=== PATIENT | female | born 1980 | race African-American/Black ===

== ENCOUNTER 2021-09-21 10:45 | Emergency (ER) | payer OTHER ==
[2021-09-21] MEDS ORDERED: HYDROcodone/Acetaminophen 5/325 mg Tablet ONE (11:15)
[2021-09-21 11:30] LABS: #Basophils 0.1 thou/uL (0.0-0.2); #Eosinphils 0.2 thou/uL (0.0-0.7); #Lymphocytes 1.1 thou/uL (1.20-3.40); #Monocytes 0.3 thou/uL (0.11-0.59); #Neutrophils 1.2 thou/uL (1.40-6.50); %Basophils 1.8 % (0.0-1.0); %Eosinophils 6.6 % (0.0-10.0); %Lymphocytes 38.6 % (21.0-51.0); %Monocytes 11.9 % (0.0-10.0); %Neutrophils 41.1 % (42.0-75.0); Hemoglobin 10.9 g/dL (12.0-16.0); Mean Corpuscular HGB CONC 31.7 g/dL (32.0-36.0); Mean Corpuscular Hemoglobin 31.6 pg (27.0-31.0); Mean Corpuscular Volume 99.7 fL (78.0-98.0); Mean Platelet Volume 7.1 fL (7.4-10.4); Platelet Count 203 thou/uL (130-400); RBC Distribution Width 17.4 % (11.5-14.5); Red Blood Cell (RBC) Count 3.46 mill/uL (4.20-5.40); White Blood Cell (WBC) Count 2.8 thou/uL (4.8-10.8)
[2021-09-21 11:46] LABS: ALT (SGPT) 10 U/L (8-55); AST (SGOT) 82 U/L (5-34); Albumin 2.6 g/dL (3.5-5.0); Alkaline Phosphatase 136 U/L (40-110); Anion Gap 17 mmol/L (10-20); BUN (Urea Nitrogen) Less than 4 mg/dL (7.0-18.7); Calc. Creatinine Clearance 0 mL/min (70-130); Calcium 8.2 mg/dL (7.8-10.44); Carbon Dioxide 25 mmol/L (22-29); Chloride 101 mmol/L (98-107); Globulin 4.5 g/dL (2.4-3.5); Glucose 80 mg/dL (70-105); Potassium 3.4 mmol/L (3.5-5.1); Protein, Total 7.1 g/dL (6.0-8.3); Sodium 140 mmol/L (136-145)
== END 2021-09-21 12:34 | disposition home or self-care (01) ==
LOC: BURERS 10:45
DX: S92.344A Nondisplaced fracture of fourth metatarsal bone, right foot, initial encounter for closed fracture (principal); R60.0 Localized edema; X58.XXXA Exposure to other specified factors, initial encounter; D50.9 Iron deficiency anemia, unspecified
CPT/HCPCS: 36415; 80053; 83880; 85025

== ENCOUNTER 2021-10-10 16:03 | Emergency (ER) | payer OTHER ==
[2021-10-10] MEDS ORDERED: Mag-Al Plus 1200 MG/1200 MG/120 MG/30 ML UDCUP ONE (16:31)
[2021-10-10] MEDS ORDERED: Ondansetron PF 4 MG/2 ML Vial ONE (16:31)
[2021-10-10] MEDS ORDERED: Lidocaine Viscous Sol 2% 15 ml UD Cup ONE (16:31)
[2021-10-10 17:24] LABS: #Basophils 0.1 thou/uL (0.0-0.2); #Lymphocytes 1.5 thou/uL (1.20-3.40); #Monocytes 0.5 thou/uL (0.11-0.59); #Neutrophils 3.5 thou/uL (1.40-6.50); %Basophils 1.8 % (0.0-1.0); %Eosinophils 0.6 % (0.0-10.0); %Lymphocytes 26.1 % (21.0-51.0); %Monocytes 8.7 % (0.0-10.0); %Neutrophils 62.8 % (42.0-75.0); Large Platelets SLIGHT; MDiff Complete? YES; Mean Corpuscular HGB CONC 30.6 g/dL (32.0-36.0); Mean Corpuscular Hemoglobin 30.9 pg (27.0-31.0); Mean Platelet Volume 8.5 fL (7.4-10.4); Platelet Count 207 thou/uL (130-400); RBC Distribution Width 18.2 % (11.5-14.5); Red Blood Cell (RBC) Count 4.51 mill/uL (4.20-5.40); White Blood Cell (WBC) Count 5.6 thou/uL (4.8-10.8)
[2021-10-10 17:31] LABS: ALT (SGPT) Less than 7 U/L (8-55); AST (SGOT) 48 U/L (5-34); Albumin 2.8 g/dL (3.5-5.0); Alkaline Phosphatase 113 U/L (40-110); Anion Gap 21 mmol/L (10-20); BUN (Urea Nitrogen) 4 mg/dL (7.0-18.7); Bilirubin, Total 1.3 mg/dL (0.2-1.2); Calc. Creatinine Clearance 0 mL/min (70-130); Calcium 9.2 mg/dL (7.8-10.44); Carbon Dioxide 27 mmol/L (22-29); Chloride 95 mmol/L (98-107); Estimated GFR 111; Globulin 5.2 g/dL (2.4-3.5); Glucose 82 mg/dL (70-105); Lipase 18 U/L (8-78); Sodium 140 mmol/L (136-145)
[2021-10-10 17:43] LABS: Potassium 2.5 mmol/L (3.5-5.1)
[2021-10-10] MEDS ORDERED: Potassium Chloride 20 MEQ TAB ONE (17:46)
== END 2021-10-10 19:35 | disposition home or self-care (01) ==
LOC: BURERS 16:03
DX: K29.20 Alcoholic gastritis without bleeding (principal); R07.9 Chest pain, unspecified; E87.6 Hypokalemia; D50.9 Iron deficiency anemia, unspecified
CPT/HCPCS: 36415; 71045; 80053; 83690; 84484; 85025; 93005; 94760; 96361; 96374; J2405

== ENCOUNTER 2021-10-11 16:56 | Emergency (ER) | payer OTHER ==
[2021-10-11] MEDS ORDERED: Lorazepam 2 MG/ML VIAL ONE (18:17)
[2021-10-11] MEDS ORDERED: Promethazine HCl 25 MG/ML VIAL ONE (18:18)
[2021-10-11 18:20] LABS: Hemoglobin 13.5 g/dL (12.0-16.0); Mean Corpuscular Volume 99.8 fL (78.0-98.0); Mean Platelet Volume 7.1 fL (7.4-10.4); Platelet Count 194 thou/uL (130-400); RBC Distribution Width 18.4 % (11.5-14.5); Red Blood Cell (RBC) Count 4.36 mill/uL (4.20-5.40); White Blood Cell (WBC) Count 3.3 thou/uL (4.8-10.8)
[2021-10-11 18:23] LABS: ALT (SGPT) Less than 7 U/L (8-55); AST (SGOT) 54 U/L (5-34); Alkaline Phosphatase 110 U/L (40-110); Anion Gap 16 mmol/L (10-20); BUN (Urea Nitrogen) Less than 4 mg/dL (7.0-18.7); Bilirubin, Total 1.2 mg/dL (0.2-1.2); Calc. Creatinine Clearance 0 mL/min (70-130); Calcium 8.6 mg/dL (7.8-10.44); Carbon Dioxide 30 mmol/L (22-29); Chloride 99 mmol/L (98-107); Estimated GFR 108; Globulin 5.5 g/dL (2.4-3.5); Glucose 98 mg/dL (70-105); Protein, Total 8.5 g/dL (6.0-8.3); Sodium 142 mmol/L (136-145)
[2021-10-11 18:24] LABS: Band 1 % (5-11); Eosinophils 2 % (0-10); Large Platelets SLIGHT; Lymphocytes 21 % (21-51); MDiff Complete? YES; Monocytes 16 % (0-10); Neutrophil 54 % (42-75); Reactive Lymphocytes 4 % (0-10)
[2021-10-11 18:25] LABS: Potassium 2.9 mmol/L (3.5-5.1)
[2021-10-11] MEDS ORDERED: Potassium Chloride 20 MEQ TAB ONE (19:34)
[2021-10-11 19:46] LABS: Magnesium 1.7 mg/dL (1.6-2.6)
[2021-10-11] MEDS ORDERED: diphenhydrAMINE 50 MG/ML VIAL ONE (20:09)
[2021-10-11] MEDS ORDERED: Metoclopramide HCl 10 MG/2 ML VIAL ONE (20:09)
[2021-10-11] MEDS ORDERED: predniSONE 20 MG TAB ONE (20:55)
[2021-10-12 04:20] LABS: Potassium 4.3 mmol/L (3.5-5.1)
== END 2021-10-12 05:33 | disposition home or self-care (01) ==
LOC: BURERS 16:56
DX: R11.10 Vomiting, unspecified (principal); E87.6 Hypokalemia
CPT/HCPCS: 36415; 71045; 80053; 83735; 83880; 84132; 84484; 85025; 93005; 96374; 96375; J1200; J2060; J2550; J2765; J7512

== ENCOUNTER 2021-11-04 13:12 | Emergency (ER) | payer OTHER ==
[2021-11-04] MEDS ORDERED: Ketorolac Tromethamine 60 MG/2 ML VIAL ONE (14:18)
== END 2021-11-04 14:43 | disposition home or self-care (01) ==
LOC: BURERS 13:12
DX: S93.402A Sprain of unspecified ligament of left ankle, initial encounter (principal); S20.211A Contusion of right front wall of thorax, initial encounter; W19.XXXA Unspecified fall, initial encounter
CPT/HCPCS: 96372; J1885

== ENCOUNTER 2023-05-03 12:49 | Emergency (ER) | payer OTHER | END 2023-05-03 13:28 | disposition home or self-care (01) | LOC: BURERS 12:49 | DX: H66.41 Suppurative otitis media, unspecified, right ear (principal) | CPT/HCPCS: 99283 ==